=== PATIENT | female | born 2000 | race Caucasian/White ===

== ENCOUNTER 2019-08-21 14:26 | Emergency (ER) | payer MEDICAID, OTHER ==
[~2019-08-21] VITALS: Ht 160 cm; Wt 97.3 kg
[2019-08-21] MEDS ORDERED: DIVA-76 (14:42)
[2019-08-21] MEDS ORDERED: HYDR50TA76 (14:42)
[2019-08-21] MEDS ORDERED: LORA10TA7 (14:42)
[2019-08-21] MEDS ORDERED: LAMO25TA8 (14:42)
[2019-08-21] MEDS ORDERED: OLAN5TAB25 (14:42)
[2019-08-21] MEDS ORDERED: TETANUS,DIPTH,PERTUSS P/F (BOOSTRIX) 0.5 ML VIAL IM ONE (14:45)
[2019-08-21] MEDS ORDERED: LIDOCAINE 1% INJ 20 ML 20 ML VIAL INJ ONE (14:45)
--- NOTE | 2019-08-21 14:57 | Diagnostic Imaging Report ---
EXAMINATION: Left foot. INDICATION: Puncture wound. FINDINGS: Three views were obtained. There are no prior studies available for comparison. There is no fracture, dislocation, or acute bony abnormality evident. The Lisfranc joint is well maintained. The soft tissues are unremarkable. In particular, there is no sign of a radiopaque foreign body. IMPRESSION: There is no evidence for an acute bony abnormality or for a radiopaque foreign body. Dictated by: Dictated on workstation # [id number]
--- NOTE | 2019-08-21 15:01 | ED Integumentary General ---
General Chief Complaint: Laceration Stated Complaint: L FOOT LACERATION Nursing Triage Note: AMB TO TRIAGE WITH STAFF. PATIENT REPORTS THAT SHE WAS RUNNING THROUGH HOUSE AND CUT L FOOT ON NAIL Source: patient Exam Limitations: no limitations History of Present Illness Date Seen by Provider: Aug 21, 2019 Time Seen by Provider: 14:32 Initial Comments 19-year-old female patient presents with complaint of a laceration to the bottom of the left foot. Patient states she was running through the house when she cut the foot on a nail. Location Injury Occurred: home Timing/Duration: just prior to arrival Location: feet (laceration to the left foot) Modifying Factors: worse with other (worse with palpation) Allergies and Home Medications Allergies Coded Allergies: No Known Drug Allergies (Unverified , 08/21/19) Home Medications Sulfamethoxazole/Trimethoprim 1 Each Tablet, 1 EACH PO BID Prescribed by: BONIFACIO CEBALLOS on 08/21/19 1508 Patient Home Medication List Home Medication List Reviewed: Yes Review of Systems Review of Systems Constitutional: no symptoms reported Respiratory: no symptoms reported Cardiovascular: no symptoms reported Musculoskeletal: see HPI Skin: see HPI Psychiatric/Neurological: No Symptoms Reported All Other Systems Reviewed Negative Unless Noted: Yes (Negative excepted noted.) Past Nkmtevv-Xatldp-Fptxmd Hx Past Med/Social Hx: Reviewed Nursing Past Med/Soc Hx Patient Social History Alcohol Use: Denies Use Recreational Drug Use: No Smoking Status: Never a Smoker Recent Foreign Travel: No Contact w/Someone Who Travel: No Recent Infectious Disease Expo: No Immunizations Up To Date Tetanus Booster (TDap): Unknown Past Medical History Surgeries: No Respiratory: No Cardiac: No Neurological: No Genitourinary: No Gastrointestinal: No Musculoskeletal: No Endocrine: No HEENT: No Cancer: No Psychosocial: Yes Anxiety, Depression Integumentary: No Family Medical History Reviewed Nursing Family Hx No Pertinent Family Hx Physical Exam Vital Signs Vital Signs - First Documented 08/21/19 14:29 Temp 36.2 Pulse 120 Resp 18 B/P (MAP) 162/119 (133) Pulse Ox 96 O2 Delivery Room Air Capillary Refill : Less Than 3 Seconds General Appearance: WD/WN, no apparent distress Cardiovascular: normal peripheral pulses, regular rate, rhythm, no edema, no murmur Respiratory: lungs clear, normal breath sounds, no respiratory distress, no accessory muscle use Extremities: no pedal edema, normal capillary refill Neurologic/Psychiatric: no motor/sensory deficits, alert, normal mood/affect, oriented x 3 Skin: normal color, warm/dry; No cyanosis, No cool, No damp, No ecchymosis, No mottled, No pallor; other (3 cm laceration to the left plantar foot (see images).) Skin Problem Location: lower extremities (left plantar foot) Skin Problem Character: tenderness (soft tissue tenderness), other (laceration) Procedures/Interventions Wound Location: Lower Extremities (left plantar foot) Wound Length (cm): 3 Wound's Depth, Shape: linear, sub Q Wound Explored: contaminated Irrigated w/ Saline (ccs): 100 Betadine Prep?: Yes (scrubbed with chlorhexidine and sterile saline) Anesthesia: 1% Lidocaine Volume Anesthetic (ccs): 2 Wound Debrided: minimal Suture: Prolene Suture Size: 4-0 Number of Sutures: 5 Layer Closure?: 1 Sterile Dressing Applied?: Yes Progress Blood loss minimal. Patient tolerated the procedure well. Progress/Results/Core Measures Results/Orders My Orders Orders - BONIFACIO CEBALLOS Foot, Left, 3 Views (08/21/19 14:39) Dipht,Pertuss(Acell),Tet Adult (Boostrix (08/21/19 14:45) Lidocaine 1% Inj 20 Ml (Xylocaine 1% Inj (08/21/19 14:45) Medications Given in ED Current Medications Medications Dose Ordered Sig/Vladimir Route Start Time Stop Time Status Last Admin Dose Admin Diphtheria/ Tetanus/Acell Pertussis 0.5 ml ONCE ONCE IM 08/21/19 14:45 08/21/19 14:46 DC 08/21/19 14:49 0.5 ML Lidocaine HCl 20 ml ONCE ONCE INJ 08/21/19 14:45 08/21/19 14:46 DC 08/21/19 14:56 20 ML Vital Signs/I&O 08/21/19 08/21/19 14:29 15:44 Temp 36.2 Pulse 120 100 Resp 18 18 B/P (MAP) 162/119 (133) 159/100 Pulse Ox 96 100 O2 Delivery Room Air Room Air Blood Pressure Mean: 133 POS Diagnostic Imaging Diagonstic Imaging: Xray Plain Films/CT/US/NM/MRI: other (foot) Comments EXAMINATION: Left foot. INDICATION: Puncture wound. FINDINGS: Three views were obtained. There are no prior studies available for comparison. There is no fracture, dislocation, or acute bony abnormality evident. The Lisfranc joint is well maintained. The soft tissues are unremarkable. In particular, there is no sign of a radiopaque foreign body. IMPRESSION: There is no evidence for an acute bony abnormality or for a radiopaque foreign body. Dictated on workstation # [id number] Reviewed: Reviewed by Me (radiology report reviewed by me) Departure Communication (Admissions) Patient seen, evaluated, and wound repair performed. Plan for discharge to home. Impression Primary Impression: Laceration of left foot Qualified Codes: S91.312A - Laceration without foreign body, left foot, initial encounter Disposition: HOME, SELF-CARE Condition: Improved Departure-Patient Inst. Decision time for Depature: 15:08 Referrals: HANK TYLER DO (PCP) Primary Care Physician Patient Instructions: Laceration Repair With Stitches (DC) Add. Discharge Instructions: All discharge instructions reviewed with patient and/or family. Voiced understanding. Medications as instructed. Tylenol Extra Strength [id number] as directed for pain. Ibuprofen 800 mg by mouth every 8 hours as needed for pain. Elevate the left foot on pillows. Ice pack for 20 minute intervals as needed. Tomorrow morning you may begin showering with antibacterial soap. Apply a small amount of triple antibiotic ointment and cover with a Band-Aid. Change the Band-Aid at least 2-3 times per day and as needed. Return to the emergency department in 10-12 days for suture removal. Avoid standing for long periods of time or walking/running long distances until healed. Follow-up with your family practitioner for recheck as an outpatient if needed. Return in the emergency department for worsened symptoms, redness, fever, drainage, or any other concerns. Scripts Sulfamethoxazole/Trimethoprim (Sulfamethoxazole-Tmp Ds Tablet) 1 Each Tablet 1 EACH PO BID, #10 TAB 0 Refills Prov: BONIFACIO CEBALLOS 08/21/19 Images Extremities-Lower 1 - Laceration, Tenderness BONIFACIO CEBALLOS Aug 21, 2019 15:01 POS
[2019-08-21] MEDS ORDERED: SULF-222 PO (15:08)
[2019-08-21 15:44] VITALS: BP 159/100
== END 2019-08-21 15:44 | disposition home or self-care (01) ==
LOC: EDUNIT# 14:26 → ER 14:27
DX: S91.312A Laceration without foreign body, left foot, initial encounter (principal); F41.9 Anxiety disorder, unspecified; F32.9 Major depressive disorder, single episode, unspecified; W45.0XXA Nail entering through skin, initial encounter; Y93.02 Activity, running
CPT/HCPCS: 12002; 73630; 90715